=== PATIENT | female | born 1960 | race Caucasian/White ===

== ENCOUNTER 2021-02-15 07:30 | Day surgery (SDC) | payer BC, SELFPAY ==
[2021-01-07 13:09] VITALS: BMI 33.3
[2021-02-15 07:45] VITALS: BP 161/82; PULSE 75; RESP 16; TEMP 36.6; O2SAT 100; BMI 33.7
[2021-02-15] MEDS: LACTATED RINGERS 1,000 ML 150 ML IV CONT (07:52)
--- NOTE | 2021-02-15 08:39 | P.PNAN_ITS ---
Anes - Initial Pre Proc Eval Procedure: Operation Date: 02/15/21 09:00 Proposed Procedures p Esophagogastroduodenoscopy - Randy Bateman MD Date/Time: 02/15/21 08:39 Surgeon: Randy Bateman MD Pre Op Diagnosis: GERD Patient Data Age: 60 Gender: F Height: 1.65 m Weight: 91.9 kg Last Vital Signs Temp 36.6 C 02/15/21 07:45 Pulse 75 02/15/21 07:45 Resp 16 02/15/21 07:45 BP 161/82 H 02/15/21 07:45 Pulse Ox 100 02/15/21 07:45 Allergies Allergy/AdvReac Type Severity Reaction Status Date / Time No Known Allergies Allergy Verified 02/15/21 07:42 Home Medications Medication Instructions Recorded Confirmed Type aspirin [Adult Low Dose Aspirin] 81 mg PO DAILY 01/07/21 02/15/21 History atorvastatin 20 mg PO HS 01/07/21 02/15/21 History pantoprazole 40 mg PO DAILY 01/07/21 02/15/21 History Patient hx anesthesia problems: none Family hx anesthesia problems: none Results Review: All pre-operative results and documents have been reviewed as part of the pre-operative evaluation. FORMERLY [facility], [facility] Past Medical History Medical History (Updated 02/15/21 @ 08:40 by Anatoliy Bernabe MD) Bladder cancer Hyperlipidemia Obesity Social History Social History Smoking status: Never smoker Alcohol intake: current Substance use: never Substance use type: does not use Living arrangements: with family Spiritual care concerns: No Anes - Eval Final PreProcedure Day of Procedure 02/15/21 08:39 Patient weight: obese Heart: regular rate and rhythm Lungs: clear to auscultation Airway: Mallampati scale class 1 Neurological: alert and oriented Last oral intake: >/= 8 hours ASA classification: II Emergent: no Anesthetic plan: proceed Anesthesia type and monitoring: general GIVS and standard monitoring Results Review: All pre-operative results and documents have been reviewed as part of the pre-operative evaluation. Informed Consent: The patient's anesthetic plan and its attendant risks and benefits were discussed with the patient/family/POA. Questions were solicited and answers provided to the satisfaction of the patient/family/POA.
--- NOTE | 2021-02-15 08:39 | PM.HPGS ---
History of Present Illness History of Present Illness Consent: Risks, benefits, and alternatives have been discussed and questions answered. Patient agrees to proceed with procedure. Chief complaint: GERD Narrative: Dena Roy is a 60 year old female with gerd, throat discomfort after lying down at bedtime. Using pantoprazole. Review of Systems Constitutional: Constitutional: Denies headache(s) and Denies weakness Eyes: Eyes: Denies blurry vision ENT: Reports Normal hearing present, Denies headache(s) and Denies neck pain Cardiovascular: Cardiovascular: Denies chest pain and Denies dyspnea Respiratory: Respiratory: Denies dyspnea Gastrointestinal: Gastrointestinal: Reports no additional gastrointestinal complaints Genitourinary: Genitourinary: Denies dysuria Musculoskeletal: Musculoskeletal: Denies neck pain Integumentary/Breasts: Skin/Breast: Denies dry skin Neurologic: Reports Normal hearing present, Denies headache(s) and Denies weakness Psychiatric: Psychiatric: Denies anxiety Endocrine: Endocrine: Denies change in body appearance Hematologic/Lymphatic: Hematologic/Lymphatic: Denies easy bleeding Allergic/Immunologic: Allergic/Immunologic: Denies urticaria PMFSH Past Medical History Medical History (Updated 02/15/21 @ 08:40 by Randy Bateman MD) Bladder cancer GERD (gastroesophageal reflux disease) Hyperlipidemia Obesity Social History Social History Smoking status: Never smoker Alcohol intake: current Substance use: never Substance use type: does not use Living arrangements: with family Spiritual care concerns: No Meds Home Medications and Allergies Home Medications Medication Instructions Recorded Confirmed Type aspirin [Adult Low Dose Aspirin] 81 mg PO DAILY 01/07/21 02/15/21 History atorvastatin 20 mg PO HS 01/07/21 02/15/21 History pantoprazole 40 mg PO DAILY 01/07/21 02/15/21 History Allergies Allergy/AdvReac Type Severity Reaction Status Date / Time No Known Allergies Allergy Verified 02/15/21 07:42 Vital Signs Vital Signs - 24 hr 02/15/21 07:45 Temperature 97.8 F Pulse Rate 75 Respiratory Rate 16 Blood Pressure 161/82 H Pulse Oximetry 100 Exam Const: General: comfortable and no acute distress HENMT: General nose exam: Normal nares present Eyes: General: appearance normal, both eyes and all related structures Neck: Neck: no JVD Resp: Auscultation: clear to auscultation bilaterally Cardio: Rate: regular rate Rhythm: regular rhythm GI: Inspection: non-distended GI Palp: Yes Soft to palpation Skin: General skin exam: normal color Neuro: General: gait normal Speech: normal speech Extrem: General: normal to inspection Psych: Mental Status: mental status grossly normal Assessment and Plan Assessment and plan (1) GERD (gastroesophageal reflux disease): Code(s): K21.9 - Gastro-esophageal reflux disease without esophagitis Status: Acute Assessment and Plan: egd with bx, already on ppi
[2021-02-15 08:52] VITALS: BP 114/69; PULSE 60; RESP 20; O2SAT 100
[2021-02-15 09:02] VITALS: BP 119/82; PULSE 68; RESP 16; O2SAT 99
[2021-02-15 09:12] VITALS: BP 116/75; PULSE 55; RESP 15; O2SAT 98
== END 2021-02-15 09:33 | disposition home or self-care (01) ==
LOC: ANHENDO 13:04
PROVIDERS: PCP Internal Medicine; Visit Provider Internal Medicine Gastroenterology
PROC: 0DJ08ZZ Inspection of Upper Intestinal Tract, Via Natural or Artificial Opening Endoscopic (ICD-10-PCS; CPT 43235; principal; 2021-02-15 09:00)
DX: K21.9 Gastro-esophageal reflux disease without esophagitis (principal); E78.5 Hyperlipidemia, unspecified; Z79.82 Long term (current) use of aspirin; E66.9 Obesity, unspecified; Z68.33 Body mass index [BMI] 33.0-33.9, adult
CPT/HCPCS: 43239; 88305; J2001; J2704; J7120

== ENCOUNTER 2023-02-23 07:51 | Outpatient (CLI) | payer BC, SELFPAY ==
--- NOTE | ~2023-02-23 | US_ITS ---
EXAMINATION: US art doppler w press LE DATE: 02/23/2023 08:41 INDICATION: Peripheral vascular disease. TECHNIQUE: Segmental pressures and plethysmographic and Doppler waveforms of the brachial and lower e xtremity arteries were obtained. COMPARISON: None. FINDINGS: Right and left brachial artery pressures of 131 mm Hg and 122 mm Hg, respectively, are concordant (no rmal difference <= 30 mmHg). The right high-thigh pressure index is 1.15 (normal > 1.2). The right ankle-brachial index (SAUL) is 1 .21 (normal >= 0.9-1.0). The right great toe-brachial index (TBI) is 0.01 (normal >= 0.65). Arterial Doppler waveforms are biphasic from common femoral artery to dorsalis pedis and at least triphasic in posterior tibial artery. The left high-thigh pressure index is 1.21. The left SAUL is 1.25. The left TBI is 0.77. Arterial Dopp ler waveforms are at least triphasic from common femoral artery to the ankle. IMPRESSION: 1. Decreased right TBI and normal right SAUL, consistent with right-sided arterial occlusive disease. Note that SAUL may be overestimated if arteries are calcified. Reviewed, dictated and finalized at location E. [employer] IMPRESSION: 1. Decreased right TBI and normal right SAUL, consistent with right-sided arteri al occlusive disease. Note that SAUL may be overestimated if arteries are calcif ied.
== END 2023-02-23 07:52 | disposition home or self-care (01) ==
LOC: ANHIMG 07:52
PROVIDERS: PCP Internal Medicine
DX: I73.9 Peripheral vascular disease, unspecified (principal)
CPT/HCPCS: 93923

== ENCOUNTER 2023-05-26 08:46 | Outpatient (CLI) | payer BC, SELFPAY ==
--- NOTE | 2023-05-26 11:30 | NEURO_ITS ---
Impression: # Non-diabetic complains of numbness of feet. No history of neck/back surgery. # Normal Nerve Conduction Study. # Normal needle/EMG exam. # Clinical correlation recommended; Could be related to small fiber neuropathy. Nerve Conduction Studies Anti Sensory Summary Table Stim Site NR Peak (ms) P-T Amp (?V) Site1 Site2 Delta-P (ms) Dist (cm) Hu (m/s) Left Saphenous Anti Sensory (Ant Med Mall) 14cm 3.9 42.5 14cm Ant Med Mall 3.9 0.0 Right Saphenous Anti Sensory (Ant Med Mall) 14cm 3.9 8.5 14cm Ant Med Mall 3.9 0.0 Left Sup Fibular Anti Sensory (Ant Lat Mall) 14 cm 3.4 9.3 14 cm Ant Lat Mall 3.4 16.0 47 Right Sup Fibular Anti Sensory (Ant Lat Mall) 14 cm 3.6 11.0 14 cm Ant Lat Mall 3.6 16.0 44 Left Sural Anti Sensory (Lat Mall) Calf 3.9 10.2 Calf Lat Mall 3.9 16.0 41 Right Sural Anti Sensory (Lat Mall) Calf 3.8 10.4 Calf Lat Mall 3.8 16.0 42 Motor Summary Table Stim Site NR Onset (ms) O-P Amp (mV) Site1 Site2 Delta-0 (ms) Dist (cm) Hu (m/s) Left Peroneal Motor (Vastus Med) Ankle 4.1 2.4 Popit Ankle 8.0 39.0 49 Popit 12.1 2.2 Right Peroneal Motor (Vastus Med) Ankle 3.9 4.4 Popit Ankle 8.4 38.0 45 Popit 12.3 3.9 Left Tibial Motor (Abd Cobian Brev) Ankle 4.4 5.7 Knee Ankle 9.7 41.0 42 Knee 14.1 3.7 Right Tibial Motor (Abd Cobian Brev) Ankle 4.0 7.0 Knee Ankle 9.3 39.0 42 Knee 13.3 4.6 F Wave Studies NR F-Lat (ms) L-R F-Lat (ms) Left Peroneal (Mrkrs) (EDB) 53.72 1.37 Right Peroneal (Mrkrs) (EDB) 52.35 1.37 Left Tibial (Mrkrs) (Abd Hallucis) 53.02 1.03 Right Tibial (Mrkrs) (Abd Hallucis) 52.00 1.03 EMG Side Muscle Nerve Root Ins Act Fibs Amp Dur Recrt Comment Right AntTibialis Dp Br Fibular L4-5 Nml Nml Nml Nml Nml Right Gastroc Tibial S1-2 Nml Nml Nml Nml Nml Right Fibularis Long Sup Br Fibular L5-S1 Nml Nml Nml Nml Nml Right Flex Dig Long Tibial L5-S2 Nml Nml Nml Nml Nml Right Ext Dig Brev Dp Br Fibular L5, S1 Nml Nml Nml Nml Nml Left AntTibialis Dp Br Fibular L4-5 Nml Nml Nml Nml Nml Left Gastroc Tibial S1-2 Nml Nml Nml Nml Nml Left Fibularis Long Sup Br Fibular L5-S1 Nml Nml Nml Nml Nml Left Flex Dig Long Tibial L5-S2 Nml Nml Nml Nml Nml Left Ext Dig Brev Dp Br Fibular L5, S1 Nml Nml Nml Nml Nml Right QuadratusFem QuadFemoris L4-5, S1 Nml Nml Nml Nml Nml Left QuadratusFem QuadFemoris L4-5, S1 Nml Nml Nml Nml Nml MTDD
== END 2023-05-26 08:47 | disposition home or self-care (01) ==
PROVIDERS: PCP Internal Medicine; Visit Provider Internal Medicine
DX: A69.22 Other neurologic disorders in Lyme disease (principal); R20.0 Anesthesia of skin
CPT/HCPCS: 95886; 95911